=== PATIENT | male | born 1940 | race Two or more races ===

== ENCOUNTER 2024-02-19 06:01 | Emergency (ER) | payer OTHER ==
[2024-02-19 05:55] VITALS: PULSE 0; RESP 0; O2SAT 0
== END 2024-02-19 10:57 ==
LOC: EMS 06:02
DX: I46.9 Cardiac arrest, cause unspecified (principal); E11.9 Type 2 diabetes mellitus without complications; I10 Essential (primary) hypertension; I49.01 Ventricular fibrillation; Z66 Do not resuscitate
CPT/HCPCS: 31500; 92950; 93005; 99291; Z7502